=== PATIENT | male | born 1970 | race Caucasian/White ===

== ENCOUNTER 2018-01-12 15:54 | Emergency (ER) | payer SELFPAY ==
[~2018-01-12] VITALS: Ht 170.2 cm; Wt 67.0 kg
[2018-01-12 15:55] VITALS: BP 156/89; PULSE 89; RESP 18; TEMP 99.1; O2SAT 98
[2018-01-12] MEDS ORDERED: CEPH-460 PO (16:20)
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
== END 2018-01-12 16:34 | disposition home or self-care (01) ==
LOC: PHEFT 15:54
DX: S61.216A Laceration without foreign body of right little finger without damage to nail, initial encounter (principal); W25.XXXA Contact with sharp glass, initial encounter; Z72.0 Tobacco use
CPT/HCPCS: 99283